=== PATIENT | male | born 1945 | race Caucasian/White ===

== ENCOUNTER → 2024-08-30 | Outpatient (CLI) | payer MEDICARE ==
[2024-08-30 12:45] LABS: T4 (THYROXINE) 7.9 ug/dL (4.7-13.3); THYROID STIMULATING HORMONE 2.59 uIU/mL (0.36-3.74)
== END | disposition home or self-care (01) ==
LOC: LAB 11:01
PROVIDERS: ATTEND Internal Medicine Cardiovascular Disease
DX: I48.0 Paroxysmal atrial fibrillation (principal); I48.3 Typical atrial flutter; Z79.899 Other long term (current) drug therapy
CPT/HCPCS: 36415; 80061; 84436; 84443; 84479

== ENCOUNTER → 2024-09-25 | Outpatient (CLI) | payer MEDICARE | END | disposition home or self-care (01) | LOC: RAH 12:59 | PROVIDERS: ATTEND Internal Medicine Cardiovascular Disease | DX: I48.0 Paroxysmal atrial fibrillation (principal); I48.3 Typical atrial flutter | CPT/HCPCS: 93306 ==

== ENCOUNTER → 2024-10-16 | Outpatient (CLI) | payer MEDICARE ==
[2024-10-16] MEDS: REGADENOSON 0.4 MG/5 ML PF SYG IVP ONE (15:38)
--- NOTE | 2024-10-19 07:52 | HMCSR ---
APPROVED REPORT Height: 5 ft 10in Weight: 190 lbs TEST INDICATIONS A FIB AND FLUTTER The imaging protocol used to acquire images was Rest Tc-99m/stress Tc-99m 1 day Consent: The procedure was explained and understood by the patient. Informerd consent was witnessed Esha Baca RN First, low dose rest was performed then high dose stress. RESTING DATA: The resting ekg shows: NSR Rest SPECT myocardial perfusion imaging was performed in supine position 59 minutes following the int ravenous injection of 13 mCi of Tc-99 Sestamibi. Time of rest injection: 09:43: Date: 10/16/2024 Time of rest imagin:44: Date: 10/16/2024 PHARMACOLOGIC STRESS: Pharmacologic stress test was performed by injecting regadenoson 0.4 mg IV push followed by the intra venous injection of 32.9 mCi of Tc-99 Sestamibi. Time of stress injection: 11:15: Date: 10/16/2024 Time of stress imagin:38: Date: 10/16/2024 Heart Rate at time of stress injection: 59 bpm. Gated Stress SPECT was performed 83 minutes after stress injection. The images were gated to evaluate regional wall motion and calculate left ventricular ejection fracti on. STRESS DETAILS Reason for Termination: Infusion complete Stress Symptoms: No chest pain or symptoms Max HR Achieved: 81 bpm % of APMHR Achieved: 58 Max Blood Pressure: 121/50 mmHg Stress ECG: NSR LEFT VENTRICLE Size: The left ventricular size is normal. Systolic Function:The left ventricular systolic function is normal. Wall Motion: No regional wall motion abnormalities noted. The left ventricular ejection fraction was calculated to be 60%.TID = . LV PERFUSION Subtle, fixed infero-apical thinning. No reversible defects noted. Conclusion The left ventricular size is normal. The left ventricular systolic function is normal. No regional wall motion abnormalities noted. Subtle, fixed infero-apical thinning. No reversible defects noted. The left ventricular ejection fraction was calculated to be 60%.
== END | disposition home or self-care (01) ==
LOC: SHCH 10-13 08:43
PROVIDERS: ATTEND Internal Medicine Cardiovascular Disease
DX: I48.0 Paroxysmal atrial fibrillation (principal); I48.3 Typical atrial flutter
CPT/HCPCS: 78452; 93017; J2785; A9500 ×2